=== PATIENT | male | born 1975 | race American Indian/Alaskan Native ===

== ENCOUNTER 2017-09-07 11:34 | Emergency (ER) | payer SELFPAY ==
[2017-09-07 12:03] LABS: Bilirubin,Urine NEG (Negative); Blood,Urine NEG (Negative); Color,Urine Yellow (Yellow); Protein,Urine <15 mg/dL mg/dL (Negative); RBC,Urine < 1.0 /HPF (0.0-6.0); Urobilinogen,Urine < 2.0 mg/dL (<2.0); WBC,Urine < 1.0 /HPF (0.0-6.0)
[2017-09-07] MEDS ORDERED: NACL 0.9% 1000 ML 1,000 ML IV ONE ×3 (12:59→14:36)
[2017-09-07] MEDS ORDERED: HumuLIN R IV ONE (13:00)
[2017-09-07 13:28] LABS: BUN/Creatinine Ratio 15; Blood Urea Nitrogen 15 mg/dL (9-20); Calcium 9.7 mg/dL (8.4-10.2); Hemolysis Index 45
[2017-09-07 14:36] LABS: Basophils # (Auto) 0.1 K/mm3 (0.0-0.1); Basophils % (Auto) 0.9 % (0.0-1.8); Eosinophils # (Auto) 0.1 K/mm3 (0.0-0.4); Eosinophils % (Auto) 1.5 % (0.0-4.3); Hematocrit 44.1 % (35.5-45.6); Hemoglobin 15.3 gm/dl (11.8-15.2); Lymphocytes # (Auto) 2.9 K/mm3 (1.2-5.4); Lymphocytes % (Auto) 31.4 % (13.4-35.0); Mean Corpuscular HGB Conc 35 % (32-34); Mean Corpuscular Hemoglobin 29 pg (28-32); Mean Corpuscular Volume 83 fl (84-94); Monocytes # (Auto) 0.7 K/mm3 (0.0-0.8); Monocytes % (Auto) 7.3 % (0.0-7.3); Platelet Count 174 K/mm3 (140-440); Red Cell Distribution Width 13.3 % (13.2-15.2)
--- NOTE | 2017-09-07 15:32 | Emergency Department Report ---
ED General Adult HPI - General Chief complaint: Hyperglycemia Stated complaint: HIGH BLOOD SUGAR Time Seen by Provider: 09/07/17 12:35 Source: patient Mode of arrival: Ambulatory Limitations: No Limitations - History of Present Illness Initial comments: Patient is a 42-year-old -[place] male who is presented here with high blood sugar. Patient states he has had some weakness for the last several days. Patient took his blood sugar was elevated. Patient denies any nausea vomiting diarrhea at this time. Patient states that he has been very noncompliant with his diet has been drinking and eating excessively. Patient states he has been taking his metformin twice a day and his confirms this. Patient also has associated probably did see a polyuria but again has not had any nausea vomiting or abdominal pain at this time. Severity scale (0 -10): 0 - Related Data Allergies Allergy/AdvReac Type Severity Reaction Status Date / Time No Known Allergies Allergy Unverified 09/07/17 11:37 ED Review of Systems ROS: Stated complaint: HIGH BLOOD SUGAR Other details as noted in HPI Comment: All other systems reviewed and negative ED Past Medical Hx - Past Medical History Previous Medical History?: Yes Hx Hypertension: Yes Hx Diabetes: Yes Additional medical history: HIGH CHOLESTEROL - Surgical History Past Surgical History?: No - Social History Smoking Status: Current Every Day Smoker Substance Use Type: Alcohol, Marijuana, Prescribed ED Physical Exam - General Limitations: No Limitations General appearance: alert, in no apparent distress - Head Head exam: Present: atraumatic, normocephalic - Eye Eye exam: Present: normal appearance - ENT ENT exam: Present: mucous membranes moist - Neck Neck exam: Present: normal inspection - Respiratory Respiratory exam: Present: normal lung sounds bilaterally. Absent: respiratory distress - Cardiovascular Cardiovascular Exam: Present: regular rate, normal rhythm. Absent: systolic murmur, diastolic murmur, rubs, gallop - GI/Abdominal GI/Abdominal exam: Present: soft, normal bowel sounds - Rectal Rectal exam: Present: deferred - Extremities Exam Extremities exam: Present: normal inspection - Back Exam Back exam: Present: normal inspection - Neurological Exam Neurological exam: Present: alert, oriented X3 - Psychiatric Psychiatric exam: Present: normal affect, normal mood - Skin Skin exam: Present: warm, dry, intact, normal color. Absent: rash ED Course Vital Signs 09/07/17 09/07/17 11:37 12:59 Temperature 98 F 98.5 F Pulse Rate 98 H 95 H Respiratory 20 21 Rate Blood Pressure 147/100 Blood Pressure 139/93 [Right] O2 Sat by Pulse 99 99 Oximetry ED Medical Decision Making - Lab Data Result diagrams: 09/07/17 14:11 09/07/17 12:56 Lab Results 09/07/17 09/07/17 09/07/17 Range/Units 11:39 11:50 12:56 WBC (4.5-11.0) K/mm3 RBC (3.65-5.03) M/mm3 Hgb (11.8-15.2) gm/dl Hct (35.5-45.6) % MCV (84-94) fl MCH (28-32) pg MCHC (32-34) % RDW (13.2-15.2) % Plt Count (140-440) K/mm3 Lymph % (Auto) (13.4-35.0) % Guthrie % (Auto) (0.0-7.3) % Eos % (Auto) (0.0-4.3) % Baso % (Auto) (0.0-1.8) % Lymph # (1.2-5.4) K/mm3 Guthrie # (0.0-0.8) K/mm3 Eos # (0.0-0.4) K/mm3 Baso # (0.0-0.1) K/mm3 Seg Neutrophils % (40.0-70.0) % Seg Neutrophils # (1.8-7.7) K/mm3 VBG pH (7.320-7.420) Sodium 132 L (137-145) mmol/L Potassium 4.9 (3.6-5.0) mmol/L Chloride 95.5 L (98-107) mmol/L Carbon Dioxide 23 (22-30) mmol/L Anion Gap 18 mmol/L BUN 15 (9-20) mg/dL Creatinine 1.0 (0.8-1.5) mg/dL Estimated GFR > 60 ml/min BUN/Creatinine Ratio 15 % Glucose 527 H* (75-100) mg/dL POC Glucose 460 H (70-105) Calcium 9.7 (8.4-10.2) mg/dL Urine Color Yellow (Yellow) Urine Turbidity Clear (Clear) Urine pH 6.0 (5.0-7.0) Ur Specific [place] 1.020 (1.003-1.030) Urine Protein <15 mg/dl (Negative) mg/dL Urine Glucose (UA) >=500 (Negative) mg/dL Urine Ketones Neg (Negative) mg/dL Urine Blood Neg (Negative) Urine Nitrite Neg (Negative) Urine Bilirubin Neg (Negative) Urine Urobilinogen < 2.0 (<2.0) mg/dL Ur Leukocyte Esterase Neg (Negative) Urine WBC (Auto) < 1.0 (0.0-6.0) /HPF Urine RBC (Auto) < 1.0 (0.0-6.0) /HPF 09/07/17 09/07/17 09/07/17 Range/Units 12:56 14:11 14:28 WBC 9.1 (4.5-11.0) K/mm3 RBC 5.30 H (3.65-5.03) M/mm3 Hgb 15.3 H (11.8-15.2) gm/dl Hct 44.1 (35.5-45.6) % MCV 83 L (84-94) fl MCH 29 (28-32) pg MCHC 35 H (32-34) % RDW 13.3 (13.2-15.2) % Plt Count 174 (140-440) K/mm3 Lymph % (Auto) 31.4 (13.4-35.0) % Guthrie % (Auto) 7.3 (0.0-7.3) % Eos % (Auto) 1.5 (0.0-4.3) % Baso % (Auto) 0.9 (0.0-1.8) % Lymph # 2.9 (1.2-5.4) K/mm3 Guthrie # 0.7 (0.0-0.8) K/mm3 Eos # 0.1 (0.0-0.4) K/mm3 Baso # 0.1 (0.0-0.1) K/mm3 Seg Neutrophils % 58.9 (40.0-70.0) % Seg Neutrophils # 5.4 (1.8-7.7) K/mm3 VBG pH 7.398 (7.320-7.420) Sodium (137-145) mmol/L Potassium (3.6-5.0) mmol/L Chloride (98-107) mmol/L Carbon Dioxide (22-30) mmol/L Anion Gap mmol/L BUN (9-20) mg/dL Creatinine (0.8-1.5) mg/dL Estimated GFR ml/min BUN/Creatinine Ratio % Glucose (75-100) mg/dL POC Glucose 314 H (70-105) Calcium (8.4-10.2) mg/dL Urine Color (Yellow) Urine Turbidity (Clear) Urine pH (5.0-7.0) Ur Specific [place] (1.003-1.030) Urine Protein (Negative) mg/dL Urine Glucose (UA) (Negative) mg/dL Urine Ketones (Negative) mg/dL Urine Blood (Negative) Urine Nitrite (Negative) Urine Bilirubin (Negative) Urine Urobilinogen (<2.0) mg/dL Ur Leukocyte Esterase (Negative) Urine WBC (Auto) (0.0-6.0) /HPF Urine RBC (Auto) (0.0-6.0) /HPF - Medical Decision Making Patient was slowly hydrated his blood sugar did respond to insulin and fluids will be discharged home at this time. Patient was given counseling regarding a diabetic diet Critical care attestation.: If time is entered above; I have spent that time in minutes in the direct care of this critically ill patient, excluding procedure time. ED Disposition Clinical Impression: Hyperglycemia Disposition: DC-01 TO HOME OR SELFCARE Is pt being admited?: No Does the pt Need Aspirin: No Condition: Stable Instructions: Diabetic Hyperglycemia (ED) Referrals: PRIMARY CARE, [Primary Care Provider] - 3-5 Days
[2017-09-07 15:57] VITALS: BP 133/90
== END 2017-09-07 15:58 | disposition home or self-care (01) ==
LOC: ED 11:34
DX: E11.65 Type 2 diabetes mellitus with hyperglycemia (principal); I10 Essential (primary) hypertension; F17.200 Nicotine dependence, unspecified, uncomplicated; F12.10 Cannabis abuse, uncomplicated; E78.00 Pure hypercholesterolemia, unspecified
CPT/HCPCS: 36415; 80048; 81001; 82805; 82962; 85025; 96361; 96374; 99284; J7030; J1815

== ENCOUNTER 2019-06-20 09:18 | Emergency (ER) | payer SELFPAY ==
[2019-06-20] MEDS ORDERED: INSULIN REGULAR, HUMAN 100 UNITS/1 ML IV ONE (09:47)
[2019-06-20] MEDS ORDERED: SODIUM CHLORIDE 0.9% 1000 ML 1,000 ML IV ONE ×2 (09:47→11:28)
--- NOTE | 2019-06-20 09:50 | Emergency Department Report ---
ED General Adult HPI - General Chief complaint: Hyperglycemia Stated complaint: DIABETIC, URINATING EXCESSIVELY Time Seen by Provider: 06/20/19 09:38 Source: patient Mode of arrival: Ambulatory Limitations: No Limitations - History of Present Illness Initial comments: Patient is 44-year-old male with history of hypertension diabetes and hyperlipidemia. Patient presented to the ER complaining of high blood sugar, polyuria and polydipsia. Patient is not compliant with his diet. Patient is taking metformin 500 twice a day and Januvia. Patient denies any chest pain, shortness of breath, fever, chills, nausea or vomiting. No weakness numbness or tingling sensation. - Related Data Allergies Allergy/AdvReac Type Severity Reaction Status Date / Time No Known Allergies Allergy Verified 06/20/19 09:22 ED Review of Systems ROS: Stated complaint: DIABETIC, URINATING EXCESSIVELY Other details as noted in HPI Comment: All other systems reviewed and negative Constitutional: denies: chills, fever Respiratory: denies: cough, shortness of breath, SOB with exertion, wheezing Cardiovascular: denies: chest pain, palpitations Gastrointestinal: denies: abdominal pain Genitourinary: frequency. denies: urgency, dysuria, hematuria, discharge, testicular pain, testicular mass Musculoskeletal: denies: back pain Neurological: denies: headache, weakness, numbness, paresthesias, confusion, abnormal gait ED Past Medical Hx - Past Medical History Hx Hypertension: Yes Hx Diabetes: Yes Additional medical history: HIGH CHOLESTEROL - Surgical History Past Surgical History?: No - Social History Smoking Status: Current Every Day Smoker ED Physical Exam - General Limitations: No Limitations General appearance: alert, in no apparent distress - Head Head exam: Present: atraumatic, normocephalic, normal inspection - Eye Eye exam: Present: normal appearance, PERRL - ENT ENT exam: Present: normal exam, normal orophraynx, mucous membranes moist - Neck Neck exam: Present: normal inspection, full ROM. Absent: tenderness, meningis mus - Respiratory Respiratory exam: Present: normal lung sounds bilaterally - Cardiovascular Cardiovascular Exam: Present: tachycardia - GI/Abdominal GI/Abdominal exam: Present: soft, normal bowel sounds. Absent: distended, tenderness, guarding, rebound, rigid, organomegaly, mass, bruit, pulsatile mass, hernia - Extremities Exam Extremities exam: Present: normal inspection, full ROM, normal capillary refill. Absent: pedal edema, calf tenderness - Back Exam Back exam: Present: normal inspection, full ROM. Absent: CVA tenderness (R), CVA tenderness (L) - Neurological Exam Neurological exam: Present: alert, oriented X3, CN II-XII intact, normal gait, reflexes normal. Absent: motor sensory deficit - Psychiatric Psychiatric exam: Present: normal affect, normal mood - Skin Skin exam: Present: warm, intact, normal color ED Course Vital Signs 06/20/19 06/20/19 06/20/19 09:24 10:06 13:21 Temperature 98.3 F Pulse Rate 120 H 106 H 95 H Respiratory 20 16 16 Rate Blood Pressure 134/91 Blood Pressure 129/96 135/69 [Right] O2 Sat by Pulse 95 97 99 Oximetry ED Medical Decision Making - Lab Data Result diagrams: 06/20/19 09:46 06/20/19 09:46 - EKG Data -: EKG Interpreted by Ia EKG shows normal: sinus rhythm Rate: tachycardia - EKG Data Interpretation: no acute changes - Medical Decision Making Patient is 44-year-old male with history of hypertension diabetes and hyperlipid emia. Patient presented to the ER complaining of high blood sugar, polyuria and polydipsia. Patient is not compliant with his diet. Patient is taking metformin 500 twice a day and Januvia. Patient denies any chest pain, shortness of breath, fever, chills, nausea or vomiting. No weakness numbness or tingling sensation. Patient received 5 units of regular insulin twice. Blood glucose now is 280. No evidence of DKA. Patient advised to increase his metformin to 1000 mg in the morning and 500 at night and to follow-up with his primary care physician in the next 2 to 3 days for more adjustment. Patient also advised to return to the ER if he develop any new symptoms. Critical care attestation.: If time is entered above; I have spent that time in minutes in the direct care of this critically ill patient, excluding procedure time. ED Disposition Clinical Impression: Acute hyperglycemia Disposition: DC-01 TO HOME OR SELFCARE Is pt being admited?: No Condition: Stable Instructions: Diabetic Hyperglycemia (ED) Referrals: PRIMARY CARE, [Primary Care Provider] - 3-5 Days
[2019-06-20 10:10] LABS: Basophils # (Auto) 0.1 K/mm3 (0.0-0.1); Basophils % (Auto) 0.8 % (0.0-1.8); Eosinophils # (Auto) 0.2 K/mm3 (0.0-0.4); Hematocrit 47.8 % (35.5-45.6); Hemoglobin 16.2 gm/dl (11.8-15.2); Lymphocytes # (Auto) 2.3 K/mm3 (1.2-5.4); Lymphocytes % (Auto) 21.7 % (13.4-35.0); Mean Corpuscular HGB Conc 34 % (32-34); Mean Corpuscular Volume 82 fl (84-94); Monocytes # (Auto) 0.8 K/mm3 (0.0-0.8); Monocytes % (Auto) 7.8 % (0.0-7.3); Red Blood Count 5.84 M/mm3 (3.65-5.03); Red Cell Distribution Width 13.4 % (13.2-15.2)
[2019-06-20 10:35] LABS: Alanine Aminotransferase 20 units/L (7-56); Albumin 4.7 g/dL (3.9-5); BUN/Creatinine Ratio 11; Blood Urea Nitrogen 14 mg/dL (9-20); Calcium 10.4 mg/dL (8.4-10.2); Hemolysis Index 22
[2019-06-20 10:43] LABS: Platelet Count 233 K/mm3 (140-440)
[2019-06-20] MEDS ORDERED: INSULIN NPH, HUMAN 100 UNIT/1 ML SUB-Q ONE (11:27)
[2019-06-20 13:06] LABS: Bilirubin,Urine NEG (Negative); Blood,Urine NEG (Negative); Color,Urine Yellow (Yellow); Mucus,Urine FEW /HPF; Protein,Urine <15 mg/dL mg/dL (Negative); Urobilinogen,Urine < 2.0 mg/dL (<2.0)
[2019-06-20 13:23] VITALS: BP 135/69
== END 2019-06-20 13:56 | disposition home or self-care (01) ==
LOC: ED 09:18
DX: E11.65 Type 2 diabetes mellitus with hyperglycemia (principal); I10 Essential (primary) hypertension; F17.200 Nicotine dependence, unspecified, uncomplicated
CPT/HCPCS: 36415; 80053; 81001; 82962; 85025; 93005; 93010; 96361; 96372; 96374; 99284; J7030; J1815

== ENCOUNTER 2019-06-26 10:15 | Emergency (ER) | payer OTHER ==
[2019-06-26] MEDS ORDERED: INSULIN REGULAR, HUMAN 100 UNITS/1 ML IV ONE ×2 (13:38→15:11)
[2019-06-26] MEDS: SODIUM CHLORIDE 0.9% 1000 ML 1,000 ML IV ONE ×2 (13:54→15:16)
--- NOTE | 2019-06-26 15:00 | Emergency Department Report ---
ED General Adult HPI - General Chief complaint: Urogenital-Male Stated complaint: DIABETIC, CONSTANTLY GOING TO THE BATHROOM Time Seen by Provider: 06/26/19 14:14 Source: patient Mode of arrival: Ambulatory Limitations: No Limitations - History of Present Illness -: Gradual, days(s) Radiation: non-radiation Severity scale (0 -10): 0 Associated Symptoms: other (polyuria and polydypsia) Treatments Prior to Arrival: other (take his medications but missed a dose and noticed it was elevated so came to the ER to help reduce the level. Reports having medication to take at home. ) - Related Data Allergies Allergy/AdvReac Type Severity Reaction Status Date / Time No Known Allergies Allergy Verified 06/20/19 09:22 ED Review of Systems ROS: Stated complaint: DIABETIC, CONSTANTLY GOING TO THE BATHROOM Other details as noted in HPI Comment: All other systems reviewed and negative ED Past Medical Hx - Past Medical History Previous Medical History?: Yes Hx Hypertension: Yes Hx Diabetes: Yes Additional medical history: HIGH CHOLESTEROL - Surgical History Past Surgical History?: No - Social History Smoking Status: Current Every Day Smoker ED Physical Exam - General Limitations: No Limitations General appearance: alert, in no apparent distress - Head Head exam: Present: atraumatic, normocephalic - Eye Eye exam: Present: normal appearance, PERRL, EOMI - ENT ENT exam: Present: normal exam, mucous membranes moist - Neck Neck exam: Present: normal inspection, full ROM - Respiratory Respiratory exam: Present: normal lung sounds bilaterally. Absent: respiratory distress, wheezes, rales - Cardiovascular Cardiovascular Exam: Present: regular rate, normal rhythm. Absent: systolic murmur, diastolic murmur, rubs, gallop - GI/Abdominal GI/Abdominal exam: Present: soft, normal bowel sounds - Rectal Rectal exam: Present: deferred - Extremities Exam Extremities exam: Present: normal inspection - Back Exam Back exam: Present: normal inspection. Absent: CVA tenderness (R), CVA tenderness (L), muscle spasm - Neurological Exam Neurological exam: Present: alert, oriented X3, CN II-XII intact - Psychiatric Psychiatric exam: Present: normal affect, normal mood - Skin Skin exam: Present: warm, dry, intact, normal color. Absent: rash ED Course Vital Signs 06/26/19 06/26/19 06/26/19 10:21 13:58 16:23 Temperature 97.6 F Pulse Rate 113 H 91 H Respiratory 20 15 16 Rate Blood Pressure 157/85 Blood Pressure 154/90 [Left] O2 Sat by Pulse 100 100 Oximetry ED Medical Decision Making - Medical Decision Making Hyper glycemic male presents to the ED for treatment of his blood sugar states t hat he has home meds but is in need of a primary care provider to adjust his current therapy note his blood sugar was elevated and he presents for treatment. He was treated accordingly emergency department responded well to her current treatment therapy remains a symptomatic throughout his hospital visit. Critical care attestation.: If time is entered above; I have spent that time in minutes in the direct care of this critically ill patient, excluding procedure time. ED Disposition Clinical Impression: Acute hyperglycemia Disposition: DC-01 TO HOME OR SELFCARE Is pt being admited?: No Does the pt Need Aspirin: No Condition: Stable Instructions: Diabetic Hyperglycemia (ED) Additional Instructions: Please be sure to keep the appointment with your primary care provider for definitive treatment and further evaluation of your your diabetes. Referrals: SHWETA RICKETTS MD [Primary Care Provider] - 3-5 Days
[2019-06-26 16:24] VITALS: BP 154/90
== END 2019-06-26 16:23 | disposition home or self-care (01) ==
LOC: ED 10:15
DX: E11.65 Type 2 diabetes mellitus with hyperglycemia (principal); I10 Essential (primary) hypertension; F17.200 Nicotine dependence, unspecified, uncomplicated
CPT/HCPCS: 82962; 96361; 96374; 96376; 99283; J7030; J1815

== ENCOUNTER 2019-07-04 12:15 | Emergency (ER) | payer OTHER ==
--- NOTE | 2019-07-04 13:28 | Emergency Department Report ---
Blank Doc - Documentation Documentation: 44-year-old male that presents with uncontrolled DM. Was sent by PCP. This initial assessment/diagnostic orders/clinical plan/treatment(s) is/are subject to change based on patient's health status, clinical progression and re- assessment by fellow clinical providers in the ED. Further treatment and workup at subsequent clinical providers discretion. Patient/guardians urged not to elope from the ED as their condition may be serious if not clinically assessed and managed. Initial orders include: 1- Patient sent to MAIN ED for further evaluation and treatment 2- labs
[2019-07-04 14:57] LABS: Basophils # (Auto) 0.1 K/mm3 (0.0-0.1); Basophils % (Auto) 0.7 % (0.0-1.8); Eosinophils # (Auto) 0.1 K/mm3 (0.0-0.4); Eosinophils % (Auto) 1.5 % (0.0-4.3); Hematocrit 47.3 % (35.5-45.6); Hemoglobin 15.8 gm/dl (11.8-15.2); Lymphocytes % (Auto) 33.7 % (13.4-35.0); Mean Corpuscular HGB Conc 33 % (32-34); Mean Corpuscular Volume 82 fl (84-94); Monocytes # (Auto) 0.6 K/mm3 (0.0-0.8); Monocytes % (Auto) 6.4 % (0.0-7.3); Platelet Count 250 K/mm3 (140-440); Red Blood Count 5.76 M/mm3 (3.65-5.03); Red Cell Distribution Width 13.5 % (13.2-15.2)
[2019-07-04 15:02] LABS: Alanine Aminotransferase 16 units/L (7-56); Albumin 4.6 g/dL (3.9-5); BUN/Creatinine Ratio 20; Blood Urea Nitrogen 18 mg/dL (9-20); Calcium 10.5 mg/dL (8.4-10.2); Hemolysis Index 33
[2019-07-04] MEDS ORDERED: SODIUM CHLORIDE 0.9% 1000 ML 1,000 ML IV ONE (15:39)
[2019-07-04] MEDS ORDERED: INSULIN REGULAR, HUMAN 100 UNITS/1 ML IV ONE ×2 (15:44→17:12)
--- NOTE | 2019-07-04 16:27 | Emergency Department Report ---
ED General Adult HPI - General Chief complaint: Hyperglycemia Stated complaint: BS/OVER 400/ ELEVATED PB Time Seen by Provider: 07/04/19 13:26 Source: patient Mode of arrival: Ambulatory Limitations: No Limitations - History of Present Illness Initial comments: Patient presents to the emergency department from his primary care doctor's office for elevated glucose level. Patient states he was told his glucose was greater than 400 at his doctor's office. Patient states that his primary care physician wrote him a prescription for insulin and told him to go to the emergency department for treatment of his hyperglycemia. Patient denies any nausea, vomiting, abdominal pain or chest pain. -: unknown Severity scale (0 -10): 0 Improves with: none Worsens with: none Associated Symptoms: denies other symptoms Treatments Prior to Arrival: none - Related Data Allergies Allergy/AdvReac Type Severity Reaction Status Date / Time No Known Allergies Allergy Verified 06/20/19 09:22 ED Review of Systems ROS: Stated complaint: BS/OVER 400/ ELEVATED PB Other details as noted in HPI Comment: All other systems reviewed and negative Constitutional: denies: chills, fever Eyes: denies: eye pain, eye discharge, vision change ENT: denies: ear pain, throat pain Respiratory: denies: cough, shortness of breath, wheezing Cardiovascular: denies: chest pain, palpitations Endocrine: no symptoms reported Gastrointestinal: denies: abdominal pain, nausea, diarrhea Genitourinary: denies: urgency, dysuria Musculoskeletal: denies: back pain, joint swelling, arthralgia Skin: denies: rash, lesions Neurological: denies: headache, weakness, paresthesias Psychiatric: denies: anxiety, depression Hematological/Lymphatic: denies: easy bleeding, easy bruising ED Past Medical Hx - Past Medical History Hx Hypertension: Yes Hx Diabetes: Yes Additional medical history: HIGH CHOLESTEROL - Surgical History Past Surgical History?: No - Social History Smoking Status: Current Every Day Smoker Substance Use Type: Alcohol ED Physical Exam - General Limitations: No Limitations General appearance: alert, in no apparent distress - Head Head exam: Present: atraumatic, normocephalic - Eye Eye exam: Present: normal appearance, PERRL, EOMI - ENT ENT exam: Present: mucous membranes moist - Neck Neck exam: Present: normal inspection - Respiratory Respiratory exam: Present: normal lung sounds bilaterally. Absent: respiratory distress - Cardiovascular Cardiovascular Exam: Present: regular rate, normal rhythm. Absent: systolic murmur, diastolic murmur, rubs, gallop - GI/Abdominal GI/Abdominal exam: Present: soft, normal bowel sounds. Absent: distended, tenderness - Rectal Rectal exam: Present: deferred - Extremities Exam Extremities exam: Present: normal inspection - Back Exam Back exam: Present: normal inspection - Neurological Exam Neurological exam: Present: alert, oriented X3, CN II-XII intact. Absent: motor sensory deficit - Psychiatric Psychiatric exam: Present: normal affect, normal mood - Skin Skin exam: Present: warm, dry, intact, normal color. Absent: rash ED Course Vital Signs 07/04/19 07/04/19 07/04/19 13:27 15:10 16:30 Temperature 98.4 F 98.1 F Pulse Rate 104 H 100 H 88 Respiratory 17 16 18 Rate Blood Pressure 133/85 Blood Pressure 109/68 122/78 [Right] O2 Sat by Pulse 96 100 100 Oximetry ED Medical Decision Making - Lab Data Result diagrams: 07/04/19 13:56 07/04/19 13:56 Lab Results 07/04/19 07/04/19 07/04/19 Range/Units 13:56 13:56 13:56 WBC 9.0 (4.5-11.0) K/mm3 RBC 5.76 H (3.65-5.03) M/mm3 Hgb 15.8 H (11.8-15.2) gm/dl Hct 47.3 H (35.5-45.6) % MCV 82 L (84-94) fl MCH 28 (28-32) pg MCHC 33 (32-34) % RDW 13.5 (13.2-15.2) % Plt Count 250 (140-440) K/mm3 Lymph % (Auto) 33.7 (13.4-35.0) % Mccormick % (Auto) 6.4 (0.0-7.3) % Eos % (Auto) 1.5 (0.0-4.3) % Baso % (Auto) 0.7 (0.0-1.8) % Lymph # 3.0 (1.2-5.4) K/mm3 Mccormick # 0.6 (0.0-0.8) K/mm3 Eos # 0.1 (0.0-0.4) K/mm3 Baso # 0.1 (0.0-0.1) K/mm3 Seg Neutrophils % 57.7 (40.0-70.0) % Seg Neutrophils # 5.2 (1.8-7.7) K/mm3 VBG pH 7.373 (7.320-7.420) Sodium 132 L (137-145) mmol/L Potassium 4.7 (3.6-5.0) mmol/L Chloride 93.6 L (98-107) mmol/L Carbon Dioxide 23 (22-30) mmol/L Anion Gap 20 mmol/L BUN 18 (9-20) mg/dL Creatinine 0.9 (0.8-1.5) mg/dL Estimated GFR > 60 ml/min BUN/Creatinine Ratio 20 % Glucose 425 H (75-100) mg/dL POC Glucose (70-105) Calcium 10.5 H (8.4-10.2) mg/dL Total Bilirubin 0.50 (0.1-1.2) mg/dL AST 15 (5-40) units/L ALT 16 (7-56) units/L Alkaline Phosphatase 84 (35-129) units/L Total Protein 8.5 H (6.3-8.2) g/dL Albumin 4.6 (3.9-5) g/dL Albumin/Globulin Ratio 1.2 % 07/04/19 07/04/19 07/04/19 Range/Units 15:12 16:34 17:22 WBC (4.5-11.0) K/mm3 RBC (3.65-5.03) M/mm3 Hgb (11.8-15.2) gm/dl Hct (35.5-45.6) % MCV (84-94) fl MCH (28-32) pg MCHC (32-34) % RDW (13.2-15.2) % Plt Count (140-440) K/mm3 Lymph % (Auto) (13.4-35.0) % Mccormick % (Auto) (0.0-7.3) % Eos % (Auto) (0.0-4.3) % Baso % (Auto) (0.0-1.8) % Lymph # (1.2-5.4) K/mm3 Mccormick # (0.0-0.8) K/mm3 Eos # (0.0-0.4) K/mm3 Baso # (0.0-0.1) K/mm3 Seg Neutrophils % (40.0-70.0) % Seg Neutrophils # (1.8-7.7) K/mm3 VBG pH (7.320-7.420) Sodium (137-145) mmol/L Potassium (3.6-5.0) mmol/L Chloride (98-107) mmol/L Carbon Dioxide (22-30) mmol/L Anion Gap mmol/L BUN (9-20) mg/dL Creatinine (0.8-1.5) mg/dL Estimated GFR ml/min BUN/Creatinine Ratio % Glucose (75-100) mg/dL POC Glucose 444 H 393 H 350 H (70-105) Calcium (8.4-10.2) mg/dL Total Bilirubin (0.1-1.2) mg/dL AST (5-40) units/L ALT (7-56) units/L Alkaline Phosphatase (35-129) units/L Total Protein (6.3-8.2) g/dL Albumin (3.9-5) g/dL Albumin/Globulin Ratio % - Medical Decision Making Patient given IV insulin with a repeat glucose level being less than 289 Critical Care Time: Yes Critical care time in (mins) excluding proc time.: 45 Critical care attestation.: If time is entered above; I have spent that time in minutes in the direct care of this critically ill patient, excluding procedure time. ED Disposition Clinical Impression: Acute hyperglycemia, Hyperglycemia due to type 2 diabetes mellitus Disposition: TO HOME OR SELFCARE Is pt being admited?: No Does the pt Need Aspirin: No Condition: Stable Instructions: Diabetes Mellitus Type 2 in Adults (ED) Additional Instructions: return if worse Referrals: PRIMARY CARE,MD [Primary Care Provider] - 3-5 Days [facility] [Provider Group] - 3-5 Days [facility] [Provider Group] - 3-5 Days Time of Disposition: 17:52
[2019-07-04 18:34] VITALS: BP 115/69
== END 2019-07-04 18:36 | disposition home or self-care (01) ==
LOC: ED 12:15
DX: E11.65 Type 2 diabetes mellitus with hyperglycemia (principal); I10 Essential (primary) hypertension; E78.00 Pure hypercholesterolemia, unspecified; F17.200 Nicotine dependence, unspecified, uncomplicated
CPT/HCPCS: 36415; 80053; 82805; 82962; 85025; 96361; 96374; 96376; 99283; J7030; J1815

== ENCOUNTER 2022-01-18 23:11 | Inpatient (IN) | payer OTHER ==
[2022-01-18] MEDS ORDERED: ACETAMINOPHEN 500 MG TAB PO ONE (23:58)
[2022-01-19 01:48] LABS: Basophils % (Auto) 0.2 % (0.0-1.8); Hematocrit 40.8 % (35.5-45.6); Hemoglobin 13.5 gm/dl (11.8-15.2); Lymphocytes # (Auto) 1.6 K/mm3 (1.2-5.4); Lymphocytes % (Auto) 8.8 % (13.4-35.0); Mean Corpuscular HGB Conc 33 % (32-34); Mean Corpuscular Volume 83 fl (84-94); Monocytes # (Auto) 1.2 K/mm3 (0.0-0.8); Monocytes % (Auto) 6.7 % (0.0-7.3); Platelet Count 136 K/mm3 (140-440); Red Blood Count 4.93 M/mm3 (3.65-5.03); Red Cell Distribution Width 13.8 % (13.2-15.2)
[2022-01-19 01:56] LABS: Alanine Aminotransferase 60 units/L (7-56); Albumin 4.1 g/dL (3.9-5); BUN/Creatinine Ratio 15; Blood Urea Nitrogen 18 mg/dL (9-20); Calcium 8.3 mg/dL (8.4-10.2); Hemolysis Index 11
[2022-01-19] MEDS ORDERED: SODIUM CHLORIDE 0.9% 1000 ML 2,000 ML IV ONE (03:46)
[2022-01-19] MEDS ORDERED: SODIUM CHLORIDE 0.9% 1000 ML 1,000 ML IV ONE (03:46)
[2022-01-19] MEDS ORDERED: dexAMETHasone 4 MG/ML VIAL IV ONE (03:46)
[2022-01-19] MEDS ORDERED: cefTRIAXone/NS 2 GM/100 ML 2 GM/100 ML BAG IV ONE (03:46)
[2022-01-19] MEDS ORDERED: METOCLOPRAMIDE 10 MG/2 ML INJ IV ONE ×2 (03:49→22:35)
--- NOTE | 2022-01-19 03:50 | Emergency Department Report ---
ED General Adult HPI - General Chief complaint: Nausea/Vomiting/Diarrhea Stated complaint: NAUSEA/VOMITING/DIARREAH PUI?: Yes Time Seen by Provider: 01/19/22 03:29 Source: patient, RN notes reviewed Mode of arrival: Ambulatory Limitations: Physical Limitation - History of Present Illness Initial comments: The patient was evaluated in the emergency department for symptoms described in the history of present illness. He/she was evaluated in the context of the global COVID-19 pandemic, which necessitated consideration that the patient might be at risk for infection with the virus that causes COVID-19. Institutional protocols and algorithms that pertain to the evaluation of patients at risk for COVID-19 are in a state of rapid change based on information released by regulatory bodies including the CDC and federal and sta organizations. These policies and algorithms were followed during the patient's care in the emergency department. Please note that these policies, procedures and recommendations changed on a rapid basis. During the history and physical examination, I had on complete personal protective equipment. This is a pleasant and cooperative 46-year-old gentleman with a history of diabetes, who is COVID-19 vaccinated, who is a tobacco smoker. He presents to the department today with a complaint of hiccups, chills, rigors, nausea. No headache, neck pain, diarrhea, or urinary symptoms. No abdominal pain. No sick contacts that he is aware of. Denies IV drug use. -: Gradual, hour(s) Severity scale (0 -10): 8 Consistency: constant Improves with: none Worsens with: none - Related Data Allergies Allergy/AdvReac Type Severity Reaction Status Date / Time No Known Allergies Allergy Verified 06/20/19 09:22 ED Review of Systems ROS: Stated complaint: NAUSEA/VOMITING/DIARREAH Other details as noted in HPI Constitutional: chills, fever, malaise, weakness Eyes: denies: eye discharge Respiratory: cough Cardiovascular: denies: chest pain Gastrointestinal: nausea. denies: abdominal pain Genitourinary: denies: dysuria Musculoskeletal: myalgia Neurological: weakness ED Past Medical Hx - Past Medical History Hx Hypertension: Yes Hx Diabetes: Yes Additional medical history: HIGH CHOLESTEROL - Social History Smoking Status: Current Every Day Smoker Substance Use Type: Alcohol ED Physical Exam - General Limitations: No Limitations General appearance: alert, anxious, in distress, obese - Head Head exam: Present: atraumatic, normocephalic - Eye Eye exam: Present: normal appearance, EOMI. Absent: nystagmus - ENT ENT exam: Present: normal exam, normal orophraynx, mucous membranes moist, nor mal external ear exam - Neck Neck exam: Present: normal inspection, full ROM - Respiratory Respiratory exam: Present: accessory muscle use, other (Pulmonary auscultation not performed secondary to lack of disposable stethoscope). Absent: stridor - Cardiovascular Cardiovascular Exam: Present: tachycardia, other (Tachycardic rate seen on monitoring tech. Auscultation not performed secondary to lack of disposable stethoscope) - GI/Abdominal GI/Abdominal exam: Present: soft. Absent: distended, tenderness, guarding, rebound, rigid, pulsatile mass - Rectal Rectal exam: Present: deferred - Extremities Exam Extremities exam: Present: normal inspection, full ROM, other (2+ pulses noted in the bilateral upper and lower extremities. There is no palpable cord. n egative Homans sign. Muscular compartments are soft. The pelvis is stable.). Absent: pedal edema, calf tenderness - Back Exam Back exam: Present: normal inspection, full ROM. Absent: tenderness, CVA tenderness (R), CVA tenderness (L), paraspinal tenderness, vertebral tenderness - Neurological Exam Neurological exam: Present: alert, oriented X3, other (No facial droop. Tongue midline. Extraocular movements intact bilaterally. Facial sensation intact to light touch in V1, V2, V3 distribution bilaterally. 5 and a 5 strength in 4 extremities. Sensation intact to light touch in 4 extremities.). Absent: motor sensory deficit - Psychiatric Psychiatric exam: Present: anxious - Skin Skin exam: Present: warm, dry, intact, normal color. Absent: rash ED Course Vital Signs 01/18/22 01/19/22 01/19/22 23:46 02:49 02:59 Temperature 103.1 F H Pulse Rate 20 L Respiratory 19 Rate Blood Pressure Blood Pressure 114/75 [Right] O2 Sat by Pulse 96 92 100 Oximetry 01/19/22 01/19/22 01/19/22 03:01 03:15 03:31 Temperature Pulse Rate Respiratory Rate Blood Pressure 162/81 162/81 162/81 Blood Pressure [Right] O2 Sat by Pulse 90 91 89 Oximetry 01/19/22 01/19/22 01/19/22 03:45 04:11 04:15 Temperature Pulse Rate Respiratory Rate Blood Pressure 180/96 180/96 180/96 Blood Pressure [Right] O2 Sat by Pulse 92 89 91 Oximetry 01/19/22 01/19/22 04:39 04:43 Temperature 100.8 F H Pulse Rate 128 H Respiratory Rate Blood Pressure 180/96 Blood Pressure [Right] O2 Sat by Pulse 88 Oximetry - Reevaluation(s) Reevaluation #1: 01/19/22 04:21 Differential diagnosis, including but not limited to: Bacteremia, viremia, intra-abdominal infection, pneumonia, COVID-19 Assessment and plan: 46-year-old gentleman, with acute hypoxic respiratory failure, saturating at 91 to 92% on room air, found to be ruling in for sepsis/systemic inflammatory response syndrome, manifested by fever, leukocytosis, and heart rate greater than 90 bpm. He is hemodynamically stable. He is protecting his airway. He is active hiccups. X-ray of the chest reviewed and appreciated. Clinically favor pneumonia over congestive heart failure. CT scan abdomen pelvis will be obtained. We recommend admission to the medical service. Patient and family member at the bedside are agreeable to admission and hospitalization. Start IV fluids, Reglan, obtain EKG, ceftriaxone, azithromycin, admit patient to the medical service for sepsis, presumed left-sided pneumonia, hypoxic respiratory failure. Hyponatremia is likely hypovolemic hyponatremia 01/19/22 04:23 Placed patient on oxygen. Start patient on steroids 01/19/22 04:26 Dr Telma Rosado to admit to IMS 01/19/22 04:42 X-ray chest reviewed and appreciated. Clinically favor pneumonia over congestive heart failure. CT scan abdomen pelvis confirms large left-sided pneu monia. Congestive heart failure is not demonstrated. Given laterality of findings, this is most likely pneumonia, and less likely COVID. Discussed this with patient and at the bedside. They are agreeable to admission and hospitalization. All questions are answered 01/19/22 05:08 ED Medical Decision Making - Lab Data Result diagrams: 01/19/22 00:46 01/19/22 00:46 Vital Signs 01/18/22 01/19/22 01/19/22 23:46 02:49 02:59 Temperature 103.1 F H Pulse Rate 20 L Respiratory 19 Rate Blood Pressure Blood Pressure 114/75 [Right] O2 Sat by Pulse 96 92 100 Oximetry 01/19/22 03:01 Temperature Pulse Rate Respiratory Rate Blood Pressure 162/81 Blood Pressure [Right] O2 Sat by Pulse 90 Oximetry Lab Results 01/19/22 01/19/22 Range/Units 00:46 00:46 WBC 17.6 H (4.5-11.0) K/mm3 RBC 4.93 (3.65-5.03) M/mm3 Hgb 13.5 (11.8-15.2) gm/dl Hct 40.8 (35.5-45.6) % MCV 83 L (84-94) fl MCH 27 L (28-32) pg MCHC 33 (32-34) % RDW 13.8 (13.2-15.2) % Plt Count 136 L (140-440) K/mm3 Lymph % (Auto) 8.8 L (13.4-35.0) % [place] % (Auto) 6.7 (0.0-7.3) % Eos % (Auto) 0.0 (0.0-4.3) % Baso % (Auto) 0.2 (0.0-1.8) % Lymph # (Auto) 1.6 (1.2-5.4) K/mm3 [place] # (Auto) 1.2 H (0.0-0.8) K/mm3 Eos # (Auto) 0.0 (0.0-0.4) K/mm3 Baso # (Auto) 0.0 (0.0-0.1) K/mm3 Seg Neutrophils % 84.3 H (40.0-70.0) % Seg Neutrophils # 14.8 H (1.8-7.7) K/mm3 Sodium 121 L (137-145) mmol/L Potassium 3.6 (3.6-5.0) mmol/L Chloride 85.7 L (98-107) mmol/L Carbon Dioxide 19 L (22-30) mmol/L Anion Gap 20 mmol/L BUN 18 (9-20) mg/dL Creatinine 1.2 (0.8-1.3) mg/dL Estimated GFR > 60 ml/min BUN/Creatinine Ratio 15 % Glucose 158 H (75-100) mg/dL Calcium 8.3 L (8.4-10.2) mg/dL Total Bilirubin 0.90 (0.1-1.2) mg/dL AST 110 H (5-40) units/L ALT 60 H (7-56) units/L Alkaline Phosphatase 68 (35-129) units/L Troponin T < 0.010 (0.00-0.029) ng/mL Total Protein 7.0 (6.3-8.2) g/dL Albumin 4.1 (3.9-5) g/dL Albumin/Globulin Ratio 1.4 % Lipase 52 (13-60) units/L - EKG Data -: EKG Interpreted by Ma Rate: tachycardia - EKG Data 01/19/22 04:41 The EKG is interpreted at 4: 36 Sinus tachycardia, with a rate of 128 bpm. There is a leftward axis deviation. There is motion artifact. There is a QTC of 4 3 9 ms. There is poor R wave progression. Premature atrial contractions. Abnormal EKG. Not a STEMI. - Radiology Data Radiology results: pending, report reviewed, image reviewed CHEST 1 VIEW 01/19/2022 2:57 AM INDICATION / CLINICAL INFORMATION: Sepsis with hiccup. COMPARISON: None available. FINDINGS: SUPPORT DEVICES: None. HEART / MEDIASTINUM: No significant abnormality. LUNGS / PLEURA: Central bronchovascular prominence, which may represent sequela of bronchitis or central pulmonary venous congestion. Partial silhouetting of the left hemidiaphragm consistent with either focal consolidation/atelectasis or a small pleural effusion. Short- term PA and lateral chest radiographic follow-up recommended. ADDITIONAL FINDINGS: None IMPRESSION: 1. Central bronchovascular prominence, which may represent sequela of bronchitis or central pulmonary venous congestion. 2. Parti al silhouetting of the left hemidiaphragm consistent with either focal consolidation/atelectasis or a small pleural effusion. Short-term PA and lateral chest radiographic follow-up recommended. Signer Name: Musa Shelton MD Signed: 01/19/2022 3:07 AM Workstation Name: [id number] CT ABDOMEN AND PELVIS WITH CONTRAST INDICATION / CLINICAL INFORMATION: Sepsis with hickups. TECHNIQUE: Axial CT images were obtained through the abdomen and pelvis after 100 mL Omnipaque [address] scans at this location are performed using CT dose reduction for ALARA by means of automated exposure con trol. COMPARISON: None available. FINDINGS: LOWER CHEST: Acute left lower lobe pneumonia with dense alveolar consolidation and air bronchograms. Trace pericardial effusion. LIVER: Hepatomegaly and diffuse hepatic steatosis. GALLBLADDER/BILIARY: The gallbladder is contracted without acute process or biliary obstruction. PANCREAS: No significant abnormality. SPLEEN: No significant abnormality. ADRENALS: No significant abnormality. KIDNEYS/URETERS: No urolithiasis, hydronephrosis, solid renal mass or other significant abnormality. GI: No acute bowel inflammation, obstruction or evidence for is chemia. APPENDIX: No significant abnormality. PERITONEUM: No pneumoperitoneum, free peritoneal fluid or loculated fluid collection. LYMPH NODES: No significant adenopathy. AORTA / ARTERIES: Mild atherosclerotic calcification without acute abnormality. URINARY BLADDER: No significant abnormality. R EPRODUCTIVE ORGANS: Suspected mild enlargement of the median lobe of the prostate gland. SKELETAL SYSTEM: Advanced L5-S1 discogenic degeneration. No acute fracture, dislocation or destructive osseous process. ADDITIONAL FINDINGS: None. IMPRESSION: 1. Acute left lower lobe pneumonia. 2. No acute abdominopelvic process. 3. Mild chronic incidental findings, as detailed above. Signer Name: Musa Shelton MD Signed: 01/19/2022 3:26 AM Workstation Name: [employer] Critical Care Time: Yes Critical care time in (mins) excluding proc time.: 35 Critical care attestation.: If time is entered above; I have spent that time in minutes in the direct care of this critically ill patient, excluding procedure time. ED Disposition Clinical Impression: Sepsis, Hyponatremia, Acute respiratory failure with hypoxia, Hiccups Disposition: ADMITTED INPATIENT Is pt being admited?: Yes Does the pt Need Aspirin: No Condition: Serious
--- NOTE | 2022-01-19 04:11 | XRay Report ---
CHEST 1 VIEW 01/19/2022 2:57 AM INDICATION / CLINICAL INFORMATION: Sepsis with hiccup. COMPARISON: None available. FINDINGS: SUPPORT DEVICES: None. HEART / MEDIASTINUM: No significant abnormality. LUNGS / PLEURA: Central bronchovascular prominence, which may represent sequela of bronchitis or cent ral pulmonary venous congestion. Partial silhouetting of the left hemidiaphragm consistent with eithe r focal consolidation/atelectasis or a small pleural effusion. Short-term PA and lateral chest radiog raphic follow-up recommended. ADDITIONAL FINDINGS: None IMPRESSION: 1. Central bronchovascular prominence, which may represent sequela of bronchitis or central pulmonary venous congestion. 2. Partial silhouetting of the left hemidiaphragm consistent with either focal consolidation/atelecta sis or a small pleural effusion. Short-term PA and lateral chest radiographic follow-up recommended. Signer Name: Musa Shelton MD Signed: 01/19/2022 4:07 AM Workstation Name: [id number]
[2022-01-19] MEDS ORDERED: AZITHROMYCIN/NS 500 MG/250 ML 500 MG/250 ML BAG IV ONE (04:18)
--- NOTE | 2022-01-19 04:31 | Cat Scan Report ---
CT ABDOMEN AND PELVIS WITH CONTRAST INDICATION / CLINICAL INFORMATION: Sepsis with hickups. TECHNIQUE: Axial CT images were obtained through the abdomen and pelvis after 100 mL Omnipaque [address] scans at this location are performed using CT dose reduction for ALARA by means of automated exposure control. COMPARISON: None available. FINDINGS: LOWER CHEST: Acute left lower lobe pneumonia with dense alveolar consolidation and air bronchograms. Trace pericardial effusion. LIVER: Hepatomegaly and diffuse hepatic steatosis. GALLBLADDER/BILIARY: The gallbladder is contracted without acute process or biliary obstruction. PANCREAS: No significant abnormality. SPLEEN: No significant abnormality. ADRENALS: No significant abnormality. KIDNEYS/URETERS: No urolithiasis, hydronephrosis, solid renal mass or other significant abnormality. GI: No acute bowel inflammation, obstruction or evidence for ischemia. APPENDIX: No significant abnormality. PERITONEUM: No pneumoperitoneum, free peritoneal fluid or loculated fluid collection. LYMPH NODES: No significant adenopathy. AORTA / ARTERIES: Mild atherosclerotic calcification without acute abnormality. URINARY BLADDER: No significant abnormality. REPRODUCTIVE ORGANS: Suspected mild enlargement of the median lobe of the prostate gland. SKELETAL SYSTEM: Advanced L5-S1 discogenic degeneration. No acute fracture, dislocation or destructiv e osseous process. ADDITIONAL FINDINGS: None. IMPRESSION: 1. Acute left lower lobe pneumonia. 2. No acute abdominopelvic process. 3. Mild chronic incidental findings, as detailed above. Signer Name: Musa Shelton MD Signed: 01/19/2022 4:26 AM Workstation Name: [employer]
[2022-01-19] MEDS ORDERED: MAGNESIUM HYDROXIDE (MOM) ORAL LIQD UDC PO PRN (04:42)
[2022-01-19] MEDS ORDERED: DEXTROSE 50% IN WATER (25GM) 50 ML SYRINGE IV PRN (04:42)
[2022-01-19] MEDS ORDERED: MORPHINE 2 MG/1 ML INJ IV PRN (04:42)
[2022-01-19] MEDS ORDERED: ONDANSETRON 4 MG/2 ML INJ IV PRN (04:42)
[2022-01-19] MEDS ORDERED: MORPHINE 4 MG/1 ML INJ IV PRN (04:42)
[2022-01-19] MEDS ORDERED: SODIUM CHLORIDE 0.9% 1000 ML 1,000 ML IV SCH ×3 (04:45→18:00)
--- NOTE | 2022-01-19 04:53 | History and Physical Report ---
History of Present Illness Date of examination: 01/19/22 Date of admission: 01/19/2022 Chief complaint: Fever Cough Shortness of breath History of present illness: 46-year-old -[place] male with known history of hypertension and diabetes mellitus presenting to the emergency room today with complaints of fever, shortness of breath, fever and chills. Symptoms have been ongoing for the past few days. He also indicates that he has been having some hiccups. Denies any headache or dizziness, denies any chest pain, no abdominal pain, no nausea or vomiting. Patient denies any sick contacts and no recent travel. Denies any contact with anyone with COVID-19. He has also been vaccinated against COVID-19. Upon arrival in the emergency room, was found to be tachypneic, tachycardic and had a fever 100.8 F. O2 saturation of 92%. Work-up in the emergency room today, significant findings on the labs includes hyponatremia of 121. Chest x-ray was unremarkable. CT of the abdomen and pelvis shows acute left lower lobe pneumonia. Patient has been started on empiric IV antibiotics and IV fluid. Past History Past Medical History: diabetes, hypertension, hyperlipidemia Past Surgical History: No surgical history Social history: smoking, alcohol abuse Family history: no significant family history Medications and Allergies Allergies Allergy/AdvReac Type Severity Reaction Status Date / Time No Known Allergies Allergy Verified 06/20/19 09:22 Active Meds: Active Medications Acetaminophen (Acetaminophen 325 Mg Tab) 650 mg PO Q4H PRN PRN Reason: Pain MILD(1-3)/Fever >100.5/SANCHEZ Dextrose (Dextrose 50% In Water (25gm) 50 Ml Syringe) 50 ml IV Q30MIN PRN; Protocol PRN Reason: Hypoglycemia Azithromycin (Zithromax/Ns) 500 mg in 250 mls @ 250 mls/hr IV ONCE ONE; P rotocol Stop: 01/19/22 05:17 Last Admin: 01/19/22 04:45 Dose: 250 mls/hr Sodium Chloride (Nacl 0.9% 1000 Ml) 1,000 mls @ 125 mls/hr IV DIRECT MARY Morphine Sulfate (Morphine 2 Mg/1 Ml Inj) 2 mg IV Q4H PRN PRN Reason: Pain, Moderate (4-6) Morphine Sulfate (Morphine 4 Mg/1 Ml Inj) 4 mg IV Q4H PRN PRN Reason: Pain , Severe (7-10) Ondansetron HCl (Ondansetron 4 Mg/2 Ml Inj) 4 mg IV Q8H PRN PRN Reason: Nausea And Vomiting Sodium Chloride (Sodium Chloride 0.9% 10 Ml Flush Syringe) 10 ml IV BID MARY Sodium Chloride (Sodium Chloride 0.9% 10 Ml Flush Syringe) 10 ml IV PRN PRN PRN Reason: LINE FLUSH Review of Systems Constitutional: fever, chills Ears, nose, mouth and throat: no nasal congestion, no sore throat Cardiovascular: no chest pain, no orthopnea, no palpitations Respiratory: cough, shortness of breath Genitourinary Male: no dysuria, no hematuria, no flank pain, no nocturia Musculoskeletal: no neck pain, no low back pain Integumentary: no rash, no pruritis Neurological: no headaches, no confusion Psychiatric: no anxiety, no depression Endocrine: no polyphagia, no polydipsia, no polyuria Exam - Constitutional Vitals: Temp Pulse Resp BP Pulse Ox 100.8 F H 128 H 19 180/96 88 01/19/22 04:43 01/19/22 04:39 01/18/22 23:46 01/19/22 04:39 01/19/22 04:39 General appearance: Present: no acute distress, well-nourished - EENT Eyes: Present: PERRL, EOM intact. Absent: scleral icterus ENT: hearing intact, clear oral mucosa, dentition normal - Neck Neck: Present: supple, normal ROM - Respiratory Respiratory effort: normal Respiratory: left: rales - Cardiovascular Rhythm: regular Heart Sounds: Present: S1 & S2. Absent: gallop, systolic murmur, diastolic mur mur, rub, click - Extremities Extremities: no ischemia, pulses intact, pulses symmetrical, No edema, normal temperature, normal color, Full ROM Peripheral Pulses: within normal limits - Abdominal General gastrointestinal: Present: soft, non-tender, non-distended, normal bowel sounds. Absent: mass - Integumentary Integumentary: Present: clear, warm, dry, normal turgor. Absent: rash - Musculoskeletal Musculoskeletal: strength equal bilaterally - Psychiatric Psychiatric: appropriate mood/affect, intact judgment & insight, memory intact, cooperative - Neurologic Neurologic: CNII-XII intact, no focal deficits, moves all extremities HEART Score - HEART Score Troponin: Troponin T < 0.010 ng/mL (0.00-0.029) 01/19/22 00:46 Results - Labs CBC & Chem 7: 01/19/22 00:46 01/19/22 00:46 Labs: Abnormal lab results 01/19/22 01/19/22 Range/Units 00:46 00:46 WBC 17.6 H (4.5-11.0) K/mm3 MCV 83 L (84-94) fl MCH 27 L (28-32) pg Plt Count 136 L (140-440) K/mm3 Lymph % (Auto) 8.8 L (13.4-35.0) % [place] # (Auto) 1.2 H (0.0-0.8) K/mm3 Seg Neutrophils % 84.3 H (40.0-70.0) % Seg Neutrophils # 14.8 H (1.8-7.7) K/mm3 Sodium 121 L (137-145) mmol/L Chloride 85.7 L (98-107) mmol/L Carbon Dioxide 19 L (22-30) mmol/L Glucose 158 H (75-100) mg/dL Calcium 8.3 L (8.4-10.2) mg/dL AST 110 H (5-40) units/L ALT 60 H (7-56) units/L Assessment and Plan Assessment: 1. Acute respiratory failure 2. Acute left-sided pneumonia 3. Sepsis 4. Diabetes mellitus 5. Hypertension 6. Hyponatremia Plan: 1. Patient admitted and placed on empiric IV antibiotics and IV fluid. 2. Will await culture results. 3. We will resume routine home medications and monitor vital signs closely 4. Patient placed on sliding scale insulin. We will monitor Accu-Cheks. DVT prophylaxis: Subcutaneous heparin CODE STATUS: Full code
[2022-01-19] MEDS ORDERED: MAGNESIUM SULFATE 2 GM/50 ML BAG IV ONE (05:29)
[2022-01-19] MEDS ORDERED: hydrALAZINE 20 MG/1 ML INJ IV PRN (06:08)
[2022-01-19] MEDS: ACETAMINOPHEN 325 MG TAB PO PRN ×2 (07:48→13:42)
[2022-01-19] MEDS: HEPARIN 5,000 UNIT/1 ML VIAL SUB-Q SCH ×3 (07:49→22:42)
[2022-01-19] MEDS: INSULIN LISPRO 100 UNIT/ML SUB-Q SCH ×4 (09:59→22:39)
[2022-01-19] MEDS: amLODIPine 5 MG TAB PO SCH (10:09)
--- NOTE | 2022-01-19 17:55 | Event Note ---
Date: 01/19/22 Brief progress note: is present at bedside. Chart reviewed and patient examined. 46-year-old male with history of DM and HTN presenting with fever, chills, malaise and dyspnea. Temp 100.1. Sats 92%. Currently on 4 L of O2. WBC 17.[address] showing left lobe pneumonia. Patient is awake but a bit sluggish. He states that he is feeling better. COVID test is pending. We will monitor sodium and continue current management for now. Discussed with nursing staff.
[2022-01-20] MEDS ORDERED: METOCLOPRAMIDE 10 MG/2 ML INJ IV ONE (04:39)
[2022-01-20] MEDS: HEPARIN 5,000 UNIT/1 ML VIAL SUB-Q SCH ×3 (05:10→21:13)
[2022-01-20] MEDS: cefTRIAXone/NS 2 GM/100 ML 2 GM/100 ML BAG IV SCH (05:10)
[2022-01-20 05:25] LABS: Basophils % (Auto) 0.4 % (0.0-1.8); Hematocrit 41.3 % (35.5-45.6); Hemoglobin 13.8 gm/dl (11.8-15.2); Lymphocytes # (Auto) 0.8 K/mm3 (1.2-5.4); Mean Corpuscular HGB Conc 33 % (32-34); Mean Corpuscular Volume 82 fl (84-94); Monocytes # (Auto) 0.7 K/mm3 (0.0-0.8); Platelet Count 126 K/mm3 (140-440); Red Blood Count 5.02 M/mm3 (3.65-5.03); Red Cell Distribution Width 13.6 % (13.2-15.2)
[2022-01-20 06:06] LABS: Alanine Aminotransferase 104 units/L (7-56); BUN/Creatinine Ratio 14; Blood Urea Nitrogen 14 mg/dL (9-20); Calcium 8.5 mg/dL (8.4-10.2); Hemolysis Index 10
[2022-01-20] MEDS: INSULIN LISPRO 100 UNIT/ML SUB-Q SCH ×4 (07:30→22:21)
[2022-01-20] MEDS ORDERED: IBUPROFEN 600 MG TAB PO SCH (08:00)
[2022-01-20] MEDS: amLODIPine 5 MG TAB PO SCH (10:25)
[2022-01-20] MEDS: AZITHROMYCIN 250 MG TAB PO SCH (10:25)
[2022-01-20 18:14] LABS: Bilirubin,Urine NEG (Negative); Blood,Urine LG (Negative); Color,Urine Yellow (Yellow)
[2022-01-20 18:32] LABS: Amorphous Crystals,Urine 2+; Mucus,Urine FEW /HPF
--- NOTE | 2022-01-20 19:51 | Progress Note ---
Assessment and Plan Assessment and plan: 46-year-old -[place] male with known history of hypertension and diabetes mellitus presenting to the emergency room head/chest congestion, cough, dyspnea, fever, chills, nausea, vomiting, hiccups and diarrhea. The symptoms started 2 days after he returned from [facility] where he spent 7 days for honeymoon with his . His is not ill or sick. Denies any headache or dizziness, denies any chest pain, no abdominal pain. Denies any contact with anyone with COVID-19. He has also been vaccinated against COVID-19. Upon arrival in the emergency room, was found to be tachypneic, tachycardic and had a fever 100.8 F. O2 saturation of 92%. work-up in the emergency room today, significant findings on the labs includes hyponatremia of 121. Chest x-ray was unremarkable. CT of the abdomen and pelvis shows acute left lower lobe pneumonia. Patient has been started on empiric IV antibiotics and IV fluid. Assessment: 1. Acute febrile illness with respiratory and GI symptoms started 2 days after returning from a 1 week trip from [facility] 2. Acute left-sided pneumonia with acute hypoxic respiratory failure 3. Elevated LFTs without a past medical history, per patient. Hepatitis serology negative. 4. Hyponatremia likely related to acute GI losses as well as pneumonia, improving 5. Diabetes mellitus, A1c 6.9 6. Hypertension 7. Tested negative for COVID-19 Plan: 1. Patient admitted and placed on empiric IV antibiotics and normal saline IV fluids 2. Blood culture negative to date 3. Clinically improving progressively and leukocytosis resolved but fever persists, LFTs remain elevated. We will reculture, repeat chest x-ray and obtain abdominal ultrasound. Consider other etiologies like malaria and other tropical diseases, will consult ID. 4. Patient placed on sliding scale insulin. We will monitor Accu-Cheks. DVT prophylaxis: Subcutaneous heparin CODE STATUS: Full code Discussed with the patient. History Interval history: Patient generally feeling progressively better, still however no acute process. Cough and dyspnea are better. Nausea, vomiting and diarrhea resolving but still has a lot of hiccups. Denies history of liver problems/disease. Hospitalist Physical - Constitutional Vitals: Temp Pulse Resp BP Pulse Ox 99.7 F H 104 H 24 123/60 96 01/20/22 16:52 01/20/22 16:52 01/20/22 16:52 01/20/22 16:52 01/20/22 16:52 General appearance: Present: no acute distress, well-nourished - EENT Eyes: Present: PERRL, EOM intact ENT: clear oral mucosa - Neck Neck: Present: supple - Respiratory Respiratory effort: normal Respiratory: left: diminished, rales - Cardiovascular Rhythm: regular - Extremities Extremities: No edema - Abdominal General gastrointestinal: soft, non-tender, non-distended, normal bowel sounds - Integumentary Integumentary: Absent: rash - Psychiatric Psychiatric: appropriate mood/affect - Neurologic Neurologic: no focal deficits HEART Score - HEART Score Troponin: Troponin T < 0.010 ng/mL (0.00-0.029) 01/19/22 00:46 Results - Labs CBC & Chem 7: 01/20/22 03:42 01/20/22 03:42 Labs: Laboratory Last Values WBC 11.0 K/mm3 (4.5-11.0) 01/20/22 03:42 RBC 5.02 M/mm3 (3.65-5.03) 01/20/22 03:42 Hgb 13.8 gm/dl (11.8-15.2) 01/20/22 03:42 Hct 41.3 % (35.5-45.6) 01/20/22 03:42 MCV 82 fl (84-94) L 01/20/22 03:42 MCH 27 pg (28-32) L 01/20/22 03:42 MCHC 33 % (32-34) 01/20/22 03:42 RDW 13.6 % (13.2-15.2) 01/20/22 03:42 Plt Count 126 K/mm3 (140-440) L 01/20/22 03:42 Lymph % (Auto) 7.0 % (13.4-35.0) L 01/20/22 03:42 [place] % (Auto) 6.0 % (0.0-7.3) 01/20/22 03:42 Eos % (Auto) 0.0 % (0.0-4.3) 01/20/22 03:42 Baso % (Auto) 0.4 % (0.0-1.8) 01/20/22 03:42 Lymph # (Auto) 0.8 K/mm3 (1.2-5.4) L 01/20/22 03:42 [place] # (Auto) 0.7 K/mm3 (0.0-0.8) 01/20/22 03:42 Eos # (Auto) 0.0 K/mm3 (0.0-0.4) 01/20/22 03:42 Baso # (Auto) 0.0 K/mm3 (0.0-0.1) 01/20/22 03:42 Seg Neutrophils % 86.6 % (40.0-70.0) H 01/20/22 03:42 Seg Neutrophils # 9.5 K/mm3 (1.8-7.7) H 01/20/22 03:42 Sodium 130 mmol/L (137-145) L D 01/20/22 03:42 Potassium 4.4 mmol/L (3.6-5.0) D 01/20/22 03:42 Chloride 92.1 mmol/L (98-107) L 01/20/22 03:42 Carbon Dioxide 25 mmol/L (22-30) 01/20/22 03:42 Anion Gap 17 mmol/L 01/20/22 03:42 BUN 14 mg/dL (9-20) 01/20/22 03:42 Creatinine 1.0 mg/dL (0.8-1.3) 01/20/22 03:42 Estimated GFR > 60 ml/min 01/20/22 03:42 BUN/Creatinine Ratio 14 % 01/20/22 03:42 Glucose 146 mg/dL (75-100) H 01/20/22 03:42 POC Glucose 214 mg/dL (70-105) H 01/20/22 11:07 Hemoglobin A1c 6.9 % (4-6) H 01/20/22 03:42 Lactic Acid 2.00 mmol/L (0.7-2.0) 01/19/22 04:24 Calcium 8.5 mg/dL (8.4-10.2) 01/20/22 03:42 Magnesium 1.20 mg/dL (1.7-2.3) L 01/19/22 04:24 Total Bilirubin 0.60 mg/dL (0.1-1.2) 01/20/22 03:42 AST 190 units/L (5-40) H 01/20/22 03:42 ALT 104 units/L (7-56) H 01/20/22 03:42 Alkaline Phosphatase 70 units/L (35-129) 01/20/22 03:42 Total Creatine Kinase 4545 units/L (55-170) H 01/19/22 04:24 Troponin T < 0.010 ng/mL (0.00-0.029) 01/19/22 00:46 Total Protein 6.7 g/dL (6.3-8.2) 01/20/22 03:42 Albumin 4.0 g/dL (3.9-5) 01/20/22 03:42 Albumin/Globulin Ratio 1.5 % 01/20/22 03:42 Lipase 52 units/L (13-60) 01/19/22 00:46 Urine Color Yellow (Yellow) 01/20/22 15:24 Urine Turbidity Slightly-cloudy (Clear) 01/20/22 15:24 Urine pH 6.0 (5.0-7.0) 01/20/22 15:24 Ur Specific [place] 1.017 (1.003-1.030) 01/20/22 15:24 Urine Protein 100 mg/dl mg/dL (Negative) 01/20/22 15:24 Urine Glucose (UA) 50 mg/dL (Negative) 01/20/22 15:24 Urine Ketones Neg mg/dL (Negative) 01/20/22 15:24 Urine Blood Lg (Negative) 01/20/22 15:24 Urine Nitrite Neg (Negative) 01/20/22 15:24 Urine Bilirubin Neg (Negative) 01/20/22 15:24 Urine Ictotest Not Reportable 01/20/22 15:24 Urine Urobilinogen 2.0 mg/dL (<2.0) 01/20/22 15:24 Ur Leukocyte Esterase Neg (Negative) 01/20/22 15:24 Urine WBC (Auto) 6.0 /HPF (0.0-6.0) 01/20/22 15:24 Urine RBC (Auto) 3.0 /HPF (0.0-6.0) 01/20/22 15:24 U Epithel Cells (Auto) 1.0 /HPF (0-13.0) 01/20/22 15:24 Amorphous Crystals 2+ 01/20/22 15:24 Urine Mucus Few /HPF 01/20/22 15:24 Urine Yeast (Budding) 1+ /HPF 01/20/22 15:24 Coronavirus (PCR) Negative (Negative) 01/19/22 13:57 Microbiology: Microbiology 01/19/22 05:18 Peripheral/Venous Blood Culture - Preliminary NO GROWTH AFTER 24 HOURS 01/19/22 04:24 Peripheral/Venous Blood Culture - Preliminary NO GROWTH AFTER 24 HOURS Silva/IV: Voiding Method Urinal Active Medications - Current Medications Current Medications: Generic Name Dose Route Start Last Admin Trade Name Freq PRN Reason Stop Dose Admin Acetaminophen 650 mg 01/19/22 04:42 01/19/22 13:42 Acetaminophen 325 Mg Tab PO 650 mg Q4H PRN Administration Pain MILD(1-3)/Fever >100.5/SANCHEZ Amlodipine Besylate 5 mg 01/19/22 10:00 01/20/22 10:25 Amlodipine 5 Mg Tab PO 5 mg QDAY MARY Administration Azithromycin 500 mg 01/20/22 10:00 01/20/22 10:25 Azithromycin 250 Mg Tab PO 500 mg QDAY MARY Administration Protocol Dextrose 50 ml 01/19/22 04:42 Dextrose 50% In Water (25gm) 50 Ml Syringe IV Q30MIN PRN Hypoglycemia Protocol Heparin Sodium (Porcine) 5,000 unit 01/19/22 06:00 01/20/22 14:16 Heparin 5,000 Unit/1 Ml Vial SUB-Q 5,000 unit Q8HR MARY Administration Hydralazine HCl 10 mg 01/19/22 06:08 Hydralazine 20 Mg/1 Ml Inj IV Q4HR PRN Blood Pressure Ceftriaxone Sodium 2 gm in 100 mls @ 200 mls/hr 01/20/22 05:00 01/20/22 05:10 Rocephin/Ns 2 Gm/100 Ml IV 200 mls/hr Q24H MARY Administration Protocol Sodium Chloride 1,000 mls @ 75 mls/hr 01/19/22 18:00 Nacl 0.9% 1000 Ml IV DIRECT MARY Insulin Human Lispro 0 unit 01/19/22 07:30 01/20/22 16:30 Insulin Lispro 100 Unit/Ml SUB-Q 2 unit ACHS MARY Administration Protocol Magnesium Hydroxide 30 ml 01/19/22 04:42 Magnesium Hydroxide (Mom) Oral Liqd Udc PO Q4H PRN Constipation Ondansetron HCl 4 mg 01/19/22 04:42 Ondansetron 4 Mg/2 Ml Inj IV Q8H PRN Nausea And Vomiting Sodium Chloride 10 ml 01/19/22 10:00 01/20/22 10:25 Sodium Chloride 0.9% 10 Ml Flush Syringe IV 10 ml BID MARY Administration Sodium Chloride 10 ml 01/19/22 04:42 Sodium Chloride 0.9% 10 Ml Flush Syringe IV PRN PRN LINE FLUSH Nutrition/Malnutrition Assess - Dietary Evaluation Nutrition/Malnutrition Findings: Nutrition Notes Start: 01/19/22 13:52 Freq: Status: Active Protocol: Document 01/19/22 13:52 CM (Rec: 01/19/22 13:55 CM [id number]) Co-Sign 01/19/22 13:52 WW Nutrition Notes Need for Assessment generated from: MD Order,Education Initial or Follow up Brief Note Current Diagnosis Diabetes,Sepsis,Hypertension, Respiratory Failure, Hyperlipidemia Current Diet Cardiac/Consistent Carbohydrate Diet Labs/Tests 01/19: Na 121 Cl 85.7 CO2 19 Mg 1.2 AST 110 ALT 60 Pertinent Medications 01/19: Humalog Height 6 ft Weight 99.79 kg [place] Body Weight (kg) 80.90 BMI 29.8 Intake Prior to Admission Good Weight change and time frame No unintentional wt loss [employer] per malnutrition screening tool assessment. Weight Status Overweight Subjective/Other Information RD consult for diet education. Pt currently under COVID19 isolation at this time. Inappropriate for diet education. No %PO intake per ADL notes. Physical assessment WNL Recommend Mg repletion protocol. Burn Absent Trauma Absent GI Symptoms None Food Allergy No Skin Integrity/Comment WNL Nutrition Intervention Follow-Up By: 01/26/22 Additional Comments Monitor need for future diet education
[2022-01-20] MEDS ORDERED: SODIUM CHLORIDE 0.9% IV ONE (21:00)
[2022-01-20] MEDS ORDERED: CHLORPROMAZINE IV ONE (21:00)
[2022-01-20] MEDS: ACETAMINOPHEN 325 MG TAB PO PRN (22:27)
[2022-01-20 23:39] LABS: Hepatitis B Surface Antigen Non-Reactive (Negative); Hepatitis C Virus Antibody Non-Reactive (NonReactive)
[2022-01-21] MEDS: HEPARIN 5,000 UNIT/1 ML VIAL SUB-Q SCH ×3 (05:04→21:57)
[2022-01-21] MEDS: cefTRIAXone/NS 2 GM/100 ML 2 GM/100 ML BAG IV SCH (05:04)
[2022-01-21] MEDS: INSULIN LISPRO 100 UNIT/ML SUB-Q SCH ×3 (06:30→17:53)
[2022-01-21 08:15] LABS: Basophils # (Auto) 0.1 K/mm3 (0.0-0.1); Basophils % (Auto) 0.7 % (0.0-1.8); Eosinophils % (Auto) 0.1 % (0.0-4.3); Hematocrit 40.9 % (35.5-45.6); Hemoglobin 13.6 gm/dl (11.8-15.2); Lymphocytes % (Auto) 14.3 % (13.4-35.0); Mean Corpuscular HGB Conc 33 % (32-34); Mean Corpuscular Volume 82 fl (84-94); Monocytes # (Auto) 1.1 K/mm3 (0.0-0.8); Monocytes % (Auto) 15.7 % (0.0-7.3); Platelet Count 134 K/mm3 (140-440); Red Blood Count 4.97 M/mm3 (3.65-5.03); Red Cell Distribution Width 13.5 % (13.2-15.2)
[2022-01-21 08:39] LABS: Alanine Aminotransferase 114 units/L (7-56); Albumin 3.7 g/dL (3.9-5); BUN/Creatinine Ratio 14; Blood Urea Nitrogen 13 mg/dL (9-20); Calcium 8.5 mg/dL (8.4-10.2); Hemolysis Index 1
[2022-01-21] MEDS ORDERED: LACTATED RINGERS 1,000 ML IV ONE (09:45)
[2022-01-21] MEDS ORDERED: LIDOCAINE MPF (2%) 20 MG/1 ML VIAL 5 ML ONE (09:46)
[2022-01-21] MEDS: amLODIPine 5 MG TAB PO SCH (09:55)
[2022-01-21] MEDS: AZITHROMYCIN 250 MG TAB PO SCH (09:55)
--- NOTE | 2022-01-21 10:01 | Ultrasound Report ---
LIMITED RUQ ABDOMINAL ULTRASOUND INDICATION: RUQ ultrasound for elevated LFTs. COMPARISON: No relevant prior imaging study available. FINDINGS: Pancreas: Visualized portions show no significant abnormality. Abdominal Aorta: No significant abnormality. IVC: No significant abnormality. Liver: The liver measures 16.6 cm in length. The liver is mildly enlarged and echogenic characterist ic of steatosis. No liver mass. Normal hepatopedal blood flow in the main portal vein. Gallbladder: Gallbladder is partially contracted but no evidence for sludge or stones.. Bile ducts: No significant abnormality. Common bile duct measures 2 mm. Right kidney: No significant abnormality visualized. Free fluid: None. Additional Findings: None. IMPRESSION: Mild hepatomegaly with steatosis. . Signer Name: Jacinto Solorio Jr, MD Signed: 01/21/2022 9:57 AM Workstation Name: [id number]
--- NOTE | 2022-01-21 10:52 | Consultation ---
History of Present Illness - Reason for Consult Consult date: 01/21/22 fever in returning traveler Requesting physician: OLAMIDE BOB - History of Present Illness The patient is a 46-year-old male with diabetes, hypertension admitted to the hospital on 01/19/2022 with fever, shortness of breath and chills. Patient was recently in [facility] for 7 days for honeymoon with his . Symptoms started after 2 days of returning back to the [place]. Having fevers up to 103.3 F. Labs on admission initially showed leukocytosis, mild thromboc ytopenia. CK 4545, transaminitis, bilirubin 0.9, CRP 15.1. Overall feeling better but still febrile. Complaining of hiccups. Patient was in [place] for 7 days, returned last Monday and started week, febrile with nausea, vomiting as well as diarrhea 2 days after returning. While in , did bunch of water activities in the [place], beach volleyball, swimming. Does recall multiple mosquito bites. RUQ ultrasound showing mild hepatomegaly Chest x-ray showed central bronchovascular prominence. CT abdomen and pelvis revealed no acute intra-abdominal process, showed acute le ft lower lobe pneumonia patient also had some diarrhea which is better. Review of Systems: General: no fevers,chills or rigors HEENT: no new visual disturbance Respiratory: No cough, sputum, hemoptysis or shortness of breath Cardiovascular: No chest pain, syncope Gastrointestinal: No nausea, vomiting or diarrhea Genitourinary: No dysuria or hematuria Musculoskeletal: No new or worsening neck pain or back pain Neurologic: No headaches, seizures Hematologic: No easy bruising or bleeding Endocrine: No night sweats or acute weight loss Skin: negative for rash, jaundice Psychiatric: No suicidal or homicidal ideation Past History Past Medical History: diabetes, hypertension, hyperlipidemia Past Surgical History: No surgical history Social history: smoking, alcohol abuse Family history: no significant family history Medications and Allergies Allergies Allergy/AdvReac Type Severity Reaction Status Date / Time No Known Allergies Allergy Verified 01/19/22 16:19 Home Medications Medication Instructions Recorded Confirmed Last Taken Type Losartan [Cozaar] 100 mg PO QDAY 01/19/22 01/19/22 01/18/22 History Metformin HCl [metFORMIN] 1,000 mg PO BID 01/19/22 01/19/22 01/18/22 History Tadalafil [Cialis] 20 mg PO DAILY PRN 01/19/22 01/19/22 Unknown History amLODIPine [Norvasc] 10 mg PO DAILY 01/19/22 01/19/22 01/18/22 History glipiZIDE [Glucotrol] 10 mg PO BID 01/19/22 01/19/22 01/18/22 History Active Meds: Active Medications Acetaminophen (Acetaminophen 325 Mg Tab) 650 mg PO Q4H PRN PRN Reason: Pain MILD(1-3)/Fever >100.5/SANCHEZ Last Admin: 01/20/22 22:27 Dose: 650 mg Amlodipine Besylate (Amlodipine 5 Mg Tab) 5 mg PO QDAY MARY Last Admin: 01/21/22 09:55 Dose: 5 mg Chlorpromazine HCl (Chlorpromazine 10 Mg Tab) 10 mg PO Q6H PRN PRN Reason: Hiccups Last Admin: 01/21/22 10:39 Dose: 10 mg Dextrose (Dextrose 50% In Water (25gm) 50 Ml Syringe) 50 ml IV Q30MIN PRN; Protocol PRN Reason: Hypoglycemia Doxycycline Hyclate (Doxycycline 100 Mg Cap) 100 mg PO BID MARY; Protocol Heparin Sodium (Porcine) (Heparin 5,000 Unit/1 Ml Vial) 5,000 unit SUB-Q Q8HR MARY Last Admin: 01/21/22 05:04 Dose: 5,000 unit Hydralazine HCl (Hydralazine 20 Mg/1 Ml Inj) 10 mg IV Q4HR PRN PRN Reason: Blood Pressure Sodium Chloride (Nacl 0.9% 1000 Ml) 1,000 mls @ 75 mls/hr IV DIRECT MARY Cefepime HCl (Cefepime/Ns 2 Gm/100 Ml) 2 gm in 100 mls @ 200 mls/hr IV Q12HR MARY; Protocol Insulin Human Lispro (Insulin Lispro 100 Unit/Ml) 0 unit SUB-Q ACHS MARY; Protocol Last Admin: 01/21/22 06:30 Dose: Not Given Magnesium Hydroxide (Magnesium Hydroxide (Mom) Oral Liqd Udc) 30 ml PO Q4H PRN PRN Reason: Constipation Sodium Chloride (Sodium Chloride 0.9% 10 Ml Flush Syringe) 10 ml IV BID [facility] Last Admin: 01/21/22 09:55 Dose: 10 ml Sodium Chloride (Sodium Chloride 0.9% 10 Ml Flush Syringe) 10 ml IV PRN PRN PRN Reason: LINE FLUSH Physical Examination - Physical Exam Narrative exam: Physical Exam: Constitutional: Alert, cooperative. No acute distress Head, Ears, Nose: Normocephalic, atraumatic. External ears, nose normal Eyes: Conjunctivae/corneas clear. No icterus. No ptosis. Neck: Supple, no meningeal signs Cardiovascular: S1, S2 + Respiratory: Good air entry, clear to auscultation bilaterally GI: Soft, non-tender; bowel sounds normal. No peritoneal signs Musculoskeletal: No pedal edema, no cyanosis. Skin: No rash or abscess Hem/Lymphatic: No palpable cervical or supraclavicular nodes. No lymphangitis Psych: Mood ok. Affect normal Neurological: Awake, alert, oriented. No gross abnormality - Constitutional Vitals: Vital Signs Temp Pulse Resp BP Pulse Ox 100.2 F H 125 H 20 136/71 93 01/21/22 05:09 01/21/22 05:09 01/21/22 05:09 01/21/22 05:09 01/21/22 05:09 Temperature -Last 24 Hours Temperature 100.2 F Temperature 103.3 F Temperature 99.7 F Temperature 98.1 F Results - Labs CBC & Chem 7: 01/21/22 07:42 01/21/22 07:42 Labs: Abnormal lab results 01/19/22 01/19/22 01/20/22 Range/Units 02:56 07:40 08:33 MCV (84-94) fl MCH (28-32) pg Plt Count (140-440) K/mm3 [place] % (Auto) (0.0-7.3) % Lymph # (Auto) (1.2-5.4) K/mm3 [place] # (Auto) (0.0-0.8) K/mm3 Sodium (137-145) mmol/L Chloride (98-107) mmol/L Glucose (75-100) mg/dL POC Glucose 220 H 238 H 189 H (70-105) mg/dL AST (5-40) units/L ALT (7-56) units/L C-Reactive Protein (0.00-1.30) mg/dL Albumin (3.9-5) g/dL 01/20/22 01/20/22 01/21/22 Range/Units 11:07 21:54 07:42 MCV 82 L (84-94) fl MCH 27 L (28-32) pg Plt Count 134 L (140-440) K/mm3 [place] % (Auto) 15.7 H (0.0-7.3) % Lymph # (Auto) 1.0 L (1.2-5.4) K/mm3 [place] # (Auto) 1.1 H (0.0-0.8) K/mm3 Sodium (137-145) mmol/L Chloride (98-107) mmol/L Glucose (75-100) mg/dL POC Glucose 214 H 133 H (70-105) mg/dL AST (5-40) units/L ALT (7-56) units/L C-Reactive Protein (0.00-1.30) mg/dL Albumin (3.9-5) g/dL 01/21/22 Range/Units 07:42 MCV (84-94) fl MCH (28-32) pg Plt Count (140-440) K/mm3 [place] % (Auto) (0.0-7.3) % Lymph # (Auto) (1.2-5.4) K/mm3 [place] # (Auto) (0.0-0.8) K/mm3 Sodium 130 L (137-145) mmol/L Chloride 92.4 L (98-107) mmol/L Glucose 142 H (75-100) mg/dL POC Glucose (70-105) mg/dL AST 189 H (5-40) units/L ALT 114 H (7-56) units/L C-Reactive Protein 15.10 H (0.00-1.30) mg/dL Albumin 3.7 L (3.9-5) g/dL - Imaging and Cardiology Chest x-ray: report reviewed, image reviewed CT scan - abdomen: report reviewed, image reviewed (LLL pneumonia) Assessment and Plan Cultures: COVID-19 PCR: Negative Hepatitis panel: Nonreactive 01/19/2022 blood culture: No growth A/P: 46-year-old male with diabetes, hypertension admitted to the hospital on 01/20/20 with fever, shortness of breath and chills. Patient was recently in [place] for 7 days for honeymoon with his . Symptoms started after 2 days of returning back to the [place]: #Fever, sepsis in a returning traveler: was not on any malaria prophylaxis. #Left lower lobe pneumonia: CT abdomen and pelvis revealed no acute intra- abdominal process, showed acute left lower lobe pneumonia patient also had some diarrhea which is better. #GI symptoms: vomiting/diarrhea. #Leukocytosis: Improved #Transaminitis, mild thrombocytopenia: RUQ ultrasound showing mild hepatomegaly Recs: -Empiric cefepime, doxycycline for now -Malaria Ag/smear, Dengue IgG/IgM, ChikV IgG, IgM -Flu PCR -monitor LFTs -stool culture, stool WBC ordered Ana Evans MD, FACP, [facility] O: [phone] F: [phone] C: [phone]
--- NOTE | 2022-01-21 11:59 | Electrocardiograph Report ---
[facility] Test Date: 2022-01-19 Test Time: 05:16:58 Pat Name: JESSICA HAJI Department: Room: A377 Gender: M Finishing Supervisor: MARGARETTE : 1975 Requested By: PAVEL BLOCK Order Number: [id number] Reading MD: Theodore Wolfe Measurements Intervals Bazine Rate: 56 P: 9 MS: 223 QRS: -21 QRSD: 88 T: -6 QT: 415 QTc: 400 Interpretive Statements Sinus bradycardia Prolonged MS interval Nonspecific T abnormalities, inferior leads No previous ECG available for comparison Electronically Signed On 01-21-2022 8:58:36 PDT by Theodore Wolfe
[2022-01-21] MEDS: DOXYCYCLINE 100 MG CAP PO SCH ×2 (12:00→21:56)
[2022-01-21] MEDS: CEFEPIME/NS 2 GM/100 ML 2 GM/100 ML BAG IV SCH ×2 (12:00→21:56)
--- NOTE | 2022-01-21 12:25 | Progress Note ---
Assessment and Plan Assessment and plan: 46-year-old -[place] male with known history of hypertension and diabetes mellitus presenting to the emergency room head/chest congestion, cough, dyspnea, fever, chills, nausea, vomiting, hiccups and diarrhea. The symptoms started 2 days after he returned from [facility] where he spent 7 days for honeymoon with his . His is not ill or sick. Denies any headache or dizziness, denies any chest pain, no abdominal pain. Denies any contact with anyone with COVID-19. He has also been vaccinated against COVID-19. Upon arrival in the emergency room, was found to be tachypneic, tachycardic and had a fever 100.8 F. O2 saturation of 92%. work-up in the emergency room today, significant findings on the labs includes hyponatremia of 121. Chest x-ray was unremarkable. CT of the abdomen and pelvis shows acute left lower lobe pneumonia. Patient has been started on empiric IV antibiotics and IV fluid. Assessment: #Acute febrile illness with respiratory and GI symptoms started 2 days after returning from a 1 week trip from [facility] #Acute left-sided pneumoniaimproved #Acute hypoxic respiratory failureresolved #Elevated LFTs without a past medical history, per patient. Hepatitis serology negative. #Hyponatremia likely related to acute GI losses as well as pneumoniaimproving #Diabetes mellitus, A1c 6.9 #Hypertension Plan: Patient admitted and placed on empiric IV antibiotics and normal saline IV fluids Blood culture negative to date Clinically improving progressively and leukocytosis resolved but fever persists, LFTs remain elevated. We will reculture, repeat chest x-ray and obtain abdominal ultrasound. Consider other etiologies like malaria and other tropical diseases. Infectious disease consulted; appreciate recs Pending Malaria antigen smear, dengue IgG/IgM, chikungunga IgG/IgM Patient placed on sliding scale insulin. We will monitor Accu-Cheks. #Advanced care planning -Disease education conducted, care plan discussed, diagnoses discussed, prognosis discussed, and patient acknowledges understanding with care plan -Time: +30 min Disposition Plan: Continue medical management Total Time Spent with Patient (Minutes): 45 minutes History Interval history: Patient became febrile to 103.3 and was tachycardic at 125 last night. Hospitalist Physical - Constitutional Vitals: Temp Pulse Resp BP Pulse Ox 100.2 F H 125 H 20 136/71 95 01/21/22 05:09 01/21/22 05:09 01/21/22 05:09 01/21/22 05:09 01/21/22 10:00 General appearance: Present: no acute distress, well-nourished - EENT Eyes: Present: PERRL, EOM intact ENT: hearing intact, clear oral mucosa, dentition normal - Neck Neck: Present: supple, normal ROM - Respiratory Respiratory effort: normal Respiratory: bilateral: CTA - Cardiovascular Heart rate: 130 Rhythm: regular Heart Sounds: Present: S1 & S2 - Extremities Extremities: no ischemia, pulses intact, pulses symmetrical, No edema, normal temperature, normal color, Full ROM Peripheral Pulses: within normal limits - Abdominal General gastrointestinal: soft, non-tender, non-distended, normal bowel sounds - Integumentary Integumentary: Present: clear, warm, dry - Psychiatric Psychiatric: appropriate mood/affect, intact judgment & insight, memory intact, cooperative - Neurologic Neurologic: CNII-XII intact, moves all extremities - Allied Health Allied health notes reviewed: nursing HEART Score - HEART Score Troponin: Troponin T < 0.010 ng/mL (0.00-0.029) 01/19/22 00:46 Results - Labs CBC & Chem 7: 01/21/22 07:42 01/21/22 07:42 Labs: Laboratory Last Values WBC 7.0 K/mm3 (4.5-11.0) 01/21/22 07:42 RBC 4.97 M/mm3 (3.65-5.03) 01/21/22 07:42 Hgb 13.6 gm/dl (11.8-15.2) 01/21/22 07:42 Hct 40.9 % (35.5-45.6) 01/21/22 07:42 MCV 82 fl (84-94) L 01/21/22 07:42 MCH 27 pg (28-32) L 01/21/22 07:42 MCHC 33 % (32-34) 01/21/22 07:42 RDW 13.5 % (13.2-15.2) 01/21/22 07:42 Plt Count 134 K/mm3 (140-440) L 01/21/22 07:42 Lymph % (Auto) 14.3 % (13.4-35.0) 01/21/22 07:42 [place] % (Auto) 15.7 % (0.0-7.3) H 01/21/22 07:42 Eos % (Auto) 0.1 % (0.0-4.3) 01/21/22 07:42 Baso % (Auto) 0.7 % (0.0-1.8) 01/21/22 07:42 Lymph # (Auto) 1.0 K/mm3 (1.2-5.4) L 01/21/22 07:42 [place] # (Auto) 1.1 K/mm3 (0.0-0.8) H 01/21/22 07:42 Eos # (Auto) 0.0 K/mm3 (0.0-0.4) 01/21/22 07:42 Baso # (Auto) 0.1 K/mm3 (0.0-0.1) 01/21/22 07:42 Seg Neutrophils % 69.2 % (40.0-70.0) 01/21/22 07:42 Seg Neutrophils # 4.8 K/mm3 (1.8-7.7) 01/21/22 07:42 Sodium 130 mmol/L (137-145) L 01/21/22 07:42 Potassium 4.0 mmol/L (3.6-5.0) 01/21/22 07:42 Chloride 92.4 mmol/L (98-107) L 01/21/22 07:42 Carbon Dioxide 24 mmol/L (22-30) 01/21/22 07:42 Anion Gap 18 mmol/L 01/21/22 07:42 BUN 13 mg/dL (9-20) 01/21/22 07:42 Creatinine 0.9 mg/dL (0.8-1.3) 01/21/22 07:42 Estimated GFR > 60 ml/min 01/21/22 07:42 BUN/Creatinine Ratio 14 % 01/21/22 07:42 Glucose 142 mg/dL (75-100) H 01/21/22 07:42 POC Glucose 133 mg/dL (70-105) H 01/20/22 21:54 Hemoglobin A1c 6.9 % (4-6) H 01/20/22 03:42 Lactic Acid 2.00 mmol/L (0.7-2.0) 01/19/22 04:24 Calcium 8.5 mg/dL (8.4-10.2) 01/21/22 07:42 Magnesium 1.20 mg/dL (1.7-2.3) L 01/19/22 04:24 Total Bilirubin 0.50 mg/dL (0.1-1.2) 01/21/22 07:42 AST 189 units/L (5-40) H 01/21/22 07:42 ALT 114 units/L (7-56) H 01/21/22 07:42 Alkaline Phosphatase 63 units/L (35-129) 01/21/22 07:42 Total Creatine Kinase 4545 units/L (55-170) H 01/19/22 04:24 Troponin T < 0.010 ng/mL (0.00-0.029) 01/19/22 00:46 C-Reactive Protein 15.10 mg/dL (0.00-1.30) H 01/21/22 07:42 Total Protein 6.4 g/dL (6.3-8.2) 01/21/22 07:42 Albumin 3.7 g/dL (3.9-5) L 01/21/22 07:42 Albumin/Globulin Ratio 1.4 % 01/21/22 07:42 Lipase 52 units/L (13-60) 01/19/22 00:46 TSH 2.800 mlU/mL (0.270-4.200) 01/21/22 07:42 Free T4 1.12 ng/dL (0.76-1.46) 01/21/22 07:42 Urine Color Yellow (Yellow) 01/20/22 15:24 Urine Turbidity Slightly-cloudy (Clear) 01/20/22 15:24 Urine pH 6.0 (5.0-7.0) 01/20/22 15:24 Ur Specific [place] 1.017 (1.003-1.030) 01/20/22 15:24 Urine Protein 100 mg/dl mg/dL (Negative) 01/20/22 15:24 Urine Glucose (UA) 50 mg/dL (Negative) 01/20/22 15:24 Urine Ketones Neg mg/dL (Negative) 01/20/22 15:24 Urine Blood Lg (Negative) 01/20/22 15:24 Urine Nitrite Neg (Negative) 01/20/22 15:24 Urine Bilirubin Neg (Negative) 01/20/22 15:24 Urine Ictotest Not Reportable 01/20/22 15:24 Urine Urobilinogen 2.0 mg/dL (<2.0) 01/20/22 15:24 Ur Leukocyte Esterase Neg (Negative) 01/20/22 15:24 Urine WBC (Auto) 6.0 /HPF (0.0-6.0) 01/20/22 15:24 Urine RBC (Auto) 3.0 /HPF (0.0-6.0) 01/20/22 15:24 U Epithel Cells (Auto) 1.0 /HPF (0-13.0) 01/20/22 15:24 Amorphous Crystals 2+ 01/20/22 15:24 Urine Mucus Few /HPF 01/20/22 15:24 Urine Yeast (Budding) 1+ /HPF 01/20/22 15:24 Coronavirus (PCR) Negative (Negative) 01/19/22 13:57 Hepatitis A IgM Ab Non-reactive (NonReactive) 01/20/22 03:42 Hep Bs Antigen Non-reactive (Negative) 01/20/22 03:42 Hep B Core IgM Ab Non-reactive (NonReactive) 01/20/22 03:42 Hepatitis C Antibody Non-reactive (NonReactive) 01/20/22 03:42 Microbiology: Microbiology 01/19/22 05:18 Peripheral/Venous Blood Culture - Preliminary NO GROWTH AFTER 48 HOURS 01/19/22 04:24 Peripheral/Venous Blood Culture - Preliminary NO GROWTH AFTER 48 HOURS Silva/IV: Voiding Method Urinal Active Medications - Current Medications Current Medications: Generic Name Dose Route Start Last Admin Trade Name Freq PRN Reason Stop Dose Admin Acetaminophen 650 mg 01/19/22 04:42 01/20/22 22:27 Acetaminophen 325 Mg Tab PO 650 mg Q4H PRN Administration Pain MILD(1-3)/Fever >100.5/SANCHEZ Amlodipine Besylate 5 mg 01/19/22 10:00 01/21/22 09:55 Amlodipine 5 Mg Tab PO 5 mg QDAY MARY Administration Chlorpromazine HCl 10 mg 01/20/22 20:03 01/21/22 10:39 Chlorpromazine 10 Mg Tab PO 10 mg Q6H PRN Administration Hiccups Dextrose 50 ml 01/19/22 04:42 Dextrose 50% In Water (25gm) 50 Ml Syringe IV Q30MIN PRN Hypoglycemia Protocol Doxycycline Hyclate 100 mg 01/21/22 11:00 01/21/22 12:00 Doxycycline 100 Mg Cap PO 100 mg BID MARY Administration Protocol Heparin Sodium (Porcine) 5,000 unit 01/19/22 06:00 01/21/22 05:04 Heparin 5,000 Unit/1 Ml Vial SUB-Q 5,000 unit Q8HR MARY Administration Hydralazine HCl 10 mg 01/19/22 06:08 Hydralazine 20 Mg/1 Ml Inj IV Q4HR PRN Blood Pressure Sodium Chloride 1,000 mls @ 75 mls/hr 01/19/22 18:00 01/21/22 12:08 Nacl 0.9% 1000 Ml IV 75 mls/hr DIRECT MARY Administration Cefepime HCl 2 gm in 100 mls @ 200 mls/hr 01/21/22 11:00 01/21/22 12:00 Cefepime/Ns 2 Gm/100 Ml IV 200 mls/hr Q12HR MARY Administration Protocol Insulin Human Lispro 0 unit 01/19/22 07:30 01/21/22 06:30 Insulin Lispro 100 Unit/Ml SUB-Q Not Given ACHS MARY Protocol Magnesium Hydroxide 30 ml 01/19/22 04:42 Magnesium Hydroxide (Mom) Oral Liqd Udc PO Q4H PRN Constipation Sodium Chloride 10 ml 01/19/22 10:00 01/21/22 09:55 Sodium Chloride 0.9% 10 Ml Flush Syringe IV 10 ml BID MARY Administration Sodium Chloride 10 ml 01/19/22 04:42 Sodium Chloride 0.9% 10 Ml Flush Syringe IV PRN PRN LINE FLUSH Nutrition/Malnutrition Assess - Dietary Evaluation Nutrition/Malnutrition Findings: Nutrition Notes Start: 01/19/22 13:52 Freq: Status: Active Protocol: Document 01/19/22 13:52 CM (Rec: 01/19/22 13:55 CM [email or web address]) Co-Sign 01/19/22 13:52 WW Nutrition Notes Need for Assessment generated from: MD Order,Education Initial or Follow up Brief Note Current Diagnosis Diabetes,Sepsis,Hypertension, Respiratory Failure, Hyperlipidemia Current Diet Cardiac/Consistent Carbohydrate Diet Labs/Tests 01/19: Na 121 Cl 85.7 CO2 19 Mg 1.2 AST 110 ALT 60 Pertinent Medications 01/19: Humalog Height 6 ft Weight 99.79 kg [place] Body Weight (kg) 80.90 BMI 29.8 Intake Prior to Admission Good Weight change and time frame No unintentional wt loss [employer] per malnutrition screening tool assessment. Weight Status Overweight Subjective/Other Information RD consult for diet education. Pt currently under COVID19 isolation at this time. Inappropriate for diet education. No %PO intake per ADL notes. Physical assessment WNL Recommend Mg repletion protocol. Burn Absent Trauma Absent GI Symptoms None Food Allergy No Skin Integrity/Comment WNL Nutrition Intervention Follow-Up By: 01/26/22 Additional Comments Monitor need for future diet education
[2022-01-21] MEDS: ACETAMINOPHEN 325 MG TAB PO PRN (15:48)
[2022-01-21 22:03] VITALS: BP 130/75
== END 2022-01-21 23:00 | disposition home or self-care (01) | DRG 871 ==
LOC: ED 23:11 → 3A 01-19 04:44
PROVIDERS: ADMIT Internal Medicine Geriatric Medicine; ATTEND Student in an Organized Health Care Education/Training Program
DX: A41.9 Sepsis, unspecified organism (principal); J69.0 Pneumonitis due to inhalation of food and vomit; J96.01 Acute respiratory failure with hypoxia; E87.1 Hypo-osmolality and hyponatremia; R94.5 Abnormal results of liver function studies; I10 Essential (primary) hypertension; E11.9 Type 2 diabetes mellitus without complications; E78.5 Hyperlipidemia, unspecified; Z20.822 Contact with and (suspected) exposure to COVID-19; F17.200 Nicotine dependence, unspecified, uncomplicated; Z71.6 Tobacco abuse counseling
CPT/HCPCS: 36415; 71045; 74177; 76705; 80048; 80053; 80074; 81001; 82140; 82550; 82962; 83036; 83690; 83735; 84145; 84439; 84443; 84484; 85025; 86140; 87040; 87086; 93005; 94760; 96374; 99291; 99406; G0378; Q9967; J0456; J0692; J0696; J1100; J1644; J1815; J2765; J3230; J3475; J7030; J7120; Q0161; U0003